=== PATIENT | female | born 1965 | race Asian ===

== ENCOUNTER 2021-10-09 02:09 | Emergency (ER) | payer MEDICARE, MEDICAID ==
[~2021-10-09] VITALS: Ht 154.9 cm; Wt 55.0 kg
[2021-10-09 02:13] VITALS: BP 142/74
[2021-10-09] MEDS: ACETAMINOPHEN 325MG TABLET PO ONE (02:45)
== END 2021-10-09 05:04 | disposition home or self-care (01) ==
LOC: ER 02:39
DX: R51.9 Headache, unspecified (principal)
CPT/HCPCS: 99283